=== PATIENT | male | born 1940 | race Caucasian/White ===

== ENCOUNTER 2018-02-02 16:58 | Inpatient (IN) ==
[2018-02-02] MEDS ORDERED: Naloxone 0.4 MG/ML INJ IVP PRN (23:02)
[2018-02-02] MEDS ORDERED: Acetaminophen 650 MG RECTAL SUPP RC PRN (23:13)
[2018-02-02] MEDS: 0.9 % Sodium Chloride 1,000 ML IVC SCH (23:35)
--- NOTE | 2018-02-02 23:40 | Internal Med History&Physical ---
Date of Encounter: 02/02/18 Time of Encounter: 22:00 Internal Medicine - H&P: HPI Chief complaint: Right-sided weakness Admitted From: Home Plans for Post Hospital Care: Home History of present illness: Mr. Bowman is a 77 year old male presented to [facility] emergency room for right- sided weakness. Past medical history is significant for dementia, hypertension , hyperlipidemia, history of TIA, S/P pacemaker Patient is disoriented when I see him in 3B. no family member at bedside. I tried to call his at [phone] but cannot get through. History is obtained from [facility] transfer documentation. Patient has abnormal gait which is worsening for about 2 days. Patient shows drowsy and moving slower than before. Patient also was found right-sided weakness since this morning. In [facility] emergency room, CT head has been done, which shows atrophy but no acute infarct or bleeding. Patient was suspected CVA and transferred to our hospital for further management. Past Med Surg Social Fam HX - Past Medical History Medical history: hyperlipidemia, hypertension, peripheral artery disease, syncope, TIA Additional medical history: Sick Sinus Syndrome Psychiatric history: no psych history - Past Surgical History Surgical History: pacemaker/AICD Additional surgical history: carotid stenosis - Social History Smoking Status: Never smoker Smokeless Tobacco Status: No Alcohol use: none Drug use: none - Family History Mother History Unknown: Yes Internal Medicine - H&P: Meds Clopidogrel [Plavix] 75 mg PO DAILY 05/27/16 [History] Doxazosin Mesylate [Cardura] 2 mg PO DAILY 05/27/16 [History] Metoprolol [Lopressor] 25 mg PO DAILY 05/27/16 [History] Aspirin [Lo-Dose Aspirin EC] 81 mg PO DAILY 02/02/18 [History] Atorvastatin [Lipitor] 40 mg PO HS 02/02/18 [History] Citalopram Hydrobromide [Citalopram HBr] 40 mg PO DAILY 02/02/18 [History] Donepezil [Aricept] 10 mg PO HS 02/02/18 [History] Memantine [Namenda] 5 mg PO DAILY 02/02/18 [History] Montelukast [Singulair] 10 mg PO DAILY 02/02/18 [History] Tramadol HCl [Ultram] 50 mg PO TID PRN 02/02/18 [History] 3 Allergy/AdvReac Type Severity Reaction Status Date / Time No Known Allergies Allergy Verified 02/02/18 20:34 All Systems PM: A 10-system review of systems was performed and is negative for pertinent findings except as documented above in the HPI. - Constitutional Vitals: Temp Pulse Resp BP Pulse Ox 98.2 F 63 16 146/83 98 02/02/18 23:21 02/02/18 23:21 02/02/18 23:21 02/02/18 23:21 02/02/18 23:21 General appearance: Present: A&O X 0, no acute distress, answers questions appropriately - Head Head exam: Present: atraumatic, normocephalic - Eye Eye exam: Present: PERRL, conjuntiva pink, sclera anicteric Pupils: Present: PERRL - Neck Neck exam general surgery: Present: supple, trachea midline. Absent: lymphadenopathy - Respiratory Respiratory exam: Present: CTAB. Absent: accessory muscle use, rales, rhonchi, wheezes - Cardiovascular Cardiovascular exam: Present: RRR, +S1, +S2. Absent: diastolic murmur, gallop, rubs, systolic murmur - GI/Abdominal GI/Abdominal exam: Present: normal bowel sounds, soft, no peritoneal signs. Absent: distended, tenderness - Extremities Exam Extremities exam: Present: warm, radial pulses palpable and symmetrical. Absent : calf tenderness, cyanotic, pedal edema - Neurological Exam Neurological exam: Present: altered, motor sensory deficit (3/5 right UE and LE) , pronater drift (Right-sided weakness). Absent: CN II-XII intact (Mouth divated to left on trying to show teeth. Tongue stick out towards right.), facial droop, speech deficit - Skin Skin exam: Present: dry, intact - Assessment and plan (1) CVA (cerebral vascular accident) Current Visit: Yes Status: Acute Assessment and plan: Patient has right-sided weakness, clinically consider CVA, most likely ischemic as CT has signs of hemorrhage. - Place patient on [facility] SS protocol - Continuous cardiac monitoring - Echo and bilateral carotid duplex - Patient cannot have MRI because of pacemaker - Nothing by mouth, aspiration precautions, swallow evaluation in a.m. - We will start antiplatelet and statin after passing swallow evaluation - Consult social work, PTOT for placement - Consult neurology for further management Qualifiers: CVA mechanism: unspecified Qualified Code(s): I63.9 - Cerebral infarction, unspecified (2) Hypertension Current Visit: Yes Status: Acute Assessment and plan: Hold hypertensive medication for permissive hypertension. Closely monitor BP Qualifiers: Hypertension type: essential hypertension Qualified Code(s): I10 - Essential (primary) hypertension (3) Dementia Current Visit: Yes Status: Acute Assessment and plan: Resume home medication after passing swallow evaluation Qualifiers: Dementia type: unspecified type Dementia behavioral disturbance: without behavioral disturbance Qualified Code(s): F03.90 - Unspecified dementia without behavioral disturbance (4) DVT prophylaxis Current Visit: Yes Status: Acute Assessment and plan: Heparin subcutaneously - Time Spent With Patient Total time spent is greater than 50% in coordination of care (as documented) at patient's floor/unit and/or counseling patient: 40 min Greater than 35 minutes
[2018-02-03 04:50] LABS: Basophils % 0.6 %; Eosinophils # 0.1 K/mcL (0.0-0.6); Eosinophils % 1.7 %; Hematocrit 45.4 % (37.5-50.1); Hemoglobin 15.1 g/dL (12.9-16.9); Immature Granulocytes % 0.4 % (0-4); Lymphocytes # 1.6 K/mcL (0.6-4.6); Lymphocytes % 29.9 %; Mean Corpuscular HGB Conc 33.3 g/dL (31.6-35.5); Mean Corpuscular Volume 87.3 fL (83.0-100.0); Mean Platelet Volume 9.9 fL (9.4-12.4); Monocytes # 0.5 K/mcL (0.0-1.3); Monocytes % 9.8 %; Neutrophils # 3.1 K/mcL (1.6-8.9); Platelet Count 149 K/mcL (140-400); Red Cell Distribution Width 13.3 % (11.5-14.5); Segmented Neutrophils % 57.6 %
[2018-02-03 05:02] LABS: INR 1.1; Prothrombin Time 11.9 Seconds (9.4-12.1)
[2018-02-03 05:12] LABS: Chol/HDL Ratio 3.4 (0-4.9)
[2018-02-03 05:17] LABS: BUN/Creatinine Ratio 16 (6-26); Blood Urea Nitrogen 15 mg/dL (8-23); Calcium 8.7 mg/dL (8.6-10.3); Carbon Dioxide 28 mEq/L (23-29); Chloride 108 mEq/L (98-107); Chol/HDL Ratio 3.5 (0-4.9); Cholesterol 92 mg/dL (< 200); Glucose 105 mg/dL (70-105); HDL Cholesterol 26 mg/dL (40-59); LDL Cholesterol,Calculated 48 mg/dL (0-99); Osmolality,Calculated 293 (280-300); Potassium 4.2 mEq/L (3.5-5.1); Sodium 141 mEq/L (136-145); Triglycerides 92 mg/dL (< 150); eGFR For African Americans > 60 (> 60); eGFR For Non-African Americans > 60 (> 60)
[2018-02-03] MEDS: *HR* Heparin 5,000 UNIT/ML VIAL SQ SCH ×2 (06:11→15:59)
[2018-02-03] MEDS: 0.9 % Sodium Chloride 1,000 ML IVC SCH (10:28)
--- NOTE | 2018-02-03 11:21 | Neurology - Consult Note ---
<Camden Covarrubias R - Last Filed: 02/03/18 11:18> Date of Encounter: 02/03/18 Time of Encounter: 11:18 History of Present Illness HPI: Mr. Bowman is a 77 year old male transferred from [facility] emergency room for a suspected CVA. CT scan did not reveal any acute abnormality, patient cannot have MRI due to pacemaker. Echo and carotid ultrasound studies are pending. No family is present for my examination, patient able to provide only a limited history of events. States he is not sure why he is the hospital or what is wrong. Documentation suggests he has been weak and ambulating poorly for last 2 days. Patient believes he has had a stroke in the past but cannot provide any further information. Past Med Surg Social Fam HX - Past Medical History Medical history: hyperlipidemia, hypertension, peripheral artery disease, syncope, TIA Additional medical history: Sick Sinus Syndrome Psychiatric history: no psych history - Past Surgical History Surgical History: pacemaker/AICD Additional surgical history: carotid stenosis - Social History Smoking Status: Never smoker Smokeless Tobacco Status: No Alcohol use: none Drug use: none - Family History Mother History Unknown: Yes Medications and Allergies Clopidogrel [Plavix] 75 mg PO DAILY 05/27/16 [History] Doxazosin Mesylate [Cardura] 2 mg PO DAILY 05/27/16 [History] Metoprolol [Lopressor] 25 mg PO DAILY 05/27/16 [History] Aspirin [Lo-Dose Aspirin EC] 81 mg PO DAILY 02/02/18 [History] Atorvastatin [Lipitor] 40 mg PO HS 02/02/18 [History] Citalopram Hydrobromide [Citalopram HBr] 40 mg PO DAILY 02/02/18 [History] Donepezil [Aricept] 10 mg PO HS 02/02/18 [History] Memantine [Namenda] 5 mg PO DAILY 02/02/18 [History] Montelukast [Singulair] 10 mg PO DAILY 02/02/18 [History] Tramadol HCl [Ultram] 50 mg PO TID PRN 02/02/18 [History] 3 Allergy/AdvReac Type Severity Reaction Status Date / Time No Known Allergies Allergy Verified 02/02/18 20:34 All Systems: The remainder of the systems were reviewed and are negative Physical Examination - Vital Signs Vital Signs: Initial Vital Signs Temp Pulse Resp BP Pulse Ox 98.7 F 60 16 131/80 97 02/02/18 18:54 02/02/18 18:54 02/02/18 18:54 02/02/18 18:54 02/02/18 18:54 - Exam Exam: Mental status: Patient is awake and alert, oriented to person only. Fund of knowledge is poor. Speaks in short sentences, does not appear to be slurring. Cranial nerves: right facial droop is visible. Visual craig, and extraocular movements intact with prompting. Pupils equal, round, reactive to light. CN V sensation and motor intact. CN VII, facial droop. Bilateral hearing diminished. Palate elevates symmetric. CN XI motor intact. Tongue deviates to right when protrude. Upper extremity motor: Right side 4/5 strength compared to left 5/5 in deltoid, biceps, triceps, finger extensors and abductors. Lower extremity motor: Right side 4/5 strength compared to left 5/5 strength in hip flexors, quadriceps, hamstrings, plantar flexor and extensor. Sensory: Intact upper and lower extremity to light touch Cerebellar: Able to perform finger to nose and rapid alternating movements with right side dysmetria and hypokinesia apparent. Reflexes: 2+ reflexes biceps, triceps, brachioradialis, achilles, and patellar. Results - Laboratory Findings CBC and BMP: 02/03/18 04:07 02/03/18 04:07 Abnormal lab findings: Abnormal lab results Chloride 108 mEq/L (98-107) H 02/03/18 04:07 POC Glucose 102 mg/dL (70-99) H 02/03/18 05:30 HDL Cholesterol 26 mg/dL (40-59) L 02/03/18 04:07 Consult Discharge Plan - Plan Referrals: Sean Fox DO [Primary Care Provider] - <Abdon Murphy I - Last Filed: 02/03/18 17:00> Date of Encounter: 02/03/18 Assessment and Plan (1) CVA (cerebral vascular accident) Current Visit: Yes Status: Acute Pt was seen and examined, my medical decision was reviewed with the Resident Physician, I agree with the documented findings, disposition and treatment plas as described except to the extent set forth below This is a 77 years old male who was seen in the neurological consultation admitted because of for acute right-sided weakness according to the family who provided most of the history that patient has this weakness of the right upper extremities and also of the lower extremity for the past 1 or 2 days at the same time they have also noticed some increasing confusion so brought in the hospital and now admitted for further workup. Baseline patient has a mild cognitive impairment but able to ambulate without any help but for the past few days he has not been able to walk by himself. No history of stroke in the past. CT scan of the head was negative for any acute bleed or infarct. On neurological examination patient is lethargic but arousable able to follow simple commands without any difficulty. Pupils are equal and reactive light and accommodation no facial asymmetry. Motor examination did have mild weakness of 3+/4 minus of the right upper and lower extremity as compared to the left Sensory examination is within normal limit reflexes slightly hypoactive on the right and equivocal toes bilaterally Initial CT of the head was negative Impression Patient most likely has a left hemispheric infarct with right sided weakness. He also has mild cognitive impairment/early dementia but overall is been stable. Plan: Following's are my recommendations. For secondary stroke prevention patient should continue daily antiplatelet medication and vascular risk factor modification. Order the following test, *cant get MRI of the brain due to pacemaker, will repeat CT< tamra ge CTA of head and Neck *Antiplatelet medication, aspirin 81 mg daily. Along with Plavix 75 mg daily *Consult physical therapy/ rehabilitation * To reduce the risk of future ischemic stroke patient need continued vascular risk modification, following's are the recommended guidelines LDL goal less than 70 MG per deciliter Diabetes management Blood pressure control should achieve less than 130/80 mmHg BP management should aim to achieve long-term control in a reasonable amount of time. Patient to continue to follow-up with his primary care physician for continued outpatient risk factor management and modification. Abdon Murphy MD Qualifiers: CVA mechanism: unspecified Qualified Code(s): I63.9 - Cerebral infarction, unspecified (2) Acute right-sided weakness Current Visit: Yes Status: Acute History of Present Illness HPI: Mr. Bowman is a 77 year old male All Systems: The remainder of the systems were reviewed and are negative Physical Examination - Vital Signs Vital Signs: Initial Vital Signs Temp Pulse Resp BP Pulse Ox 98.7 F 60 16 131/80 97 02/02/18 18:54 02/02/18 18:54 02/02/18 18:54 02/02/18 18:54 02/02/18 18:54 Results - Laboratory Findings CBC and BMP: 02/03/18 04:07 02/03/18 04:07 Abnormal lab findings: Abnormal lab results Chloride 108 mEq/L (98-107) H 02/03/18 04:07 POC Glucose 102 mg/dL (70-99) H 02/03/18 05:30 HDL Cholesterol 26 mg/dL (40-59) L 02/03/18 04:07
[2018-02-03] MEDS: Aspirin Enteric Coated 81 MG Tablet PO SCH (15:58)
--- NOTE | 2018-02-03 18:37 | Internal Med Progress Note ---
Date of Encounter: 02/03/18 Time of Encounter: 15:15 - Assessment and plan (1) CVA (cerebral vascular accident) Current Visit: Yes Status: Suspected Assessment and plan: presented with right-sided weakness, gradual onset about 3 days ago; CT head showed no acute stroke; MRI brain could not be done due to presence of PPM; B/L Carotid Doppler shows- left occlusion and 60-79% stenosis on right side; consulted vascular surgery; Echo shows preserved EF, mild diastolic dysfunction; Neurology recommendations appreciated; resume ASA and Plavix, continue statin; BURRITO MAKER cleared patient for diet; PT/OT evaluation recommends IP rehab, social security specialist on board; Qualifiers: CVA mechanism: unspecified Qualified Code(s): I63.9 - Cerebral infarction, unspecified (2) Hypertension Current Visit: Yes Status: Chronic Qualifiers: Hypertension type: essential hypertension Qualified Code(s): I10 - Essential (primary) hypertension (3) Dementia Current Visit: Yes Status: Chronic Qualifiers: Dementia type: Alzheimer's disease Alzheimer's disease onset: late-onset Dementia behavioral disturbance: without behavioral disturbance Qualified Code (s): G30.1 - Alzheimer's disease with late onset; F02.80 - Dementia in other diseases classified elsewhere without behavioral disturbance (4) DVT prophylaxis Current Visit: Yes Status: Acute (5) Pacemaker Current Visit: Yes Status: Chronic - Time Spent With Patient Total time spent is greater than 50% in coordination of care (as documented) at patient's floor/unit and/or counseling patient: - Subjective Interval history: Able to answer a few questions; continues to have some confusion, memory loss, right-sided weakness; no dysphagia, facial droop; history obtained from his at bedside; - Constitutional Vitals: Temp Pulse Resp BP Pulse Ox 98.6 F 71 17 132/82 96 02/03/18 15:56 02/03/18 15:56 02/03/18 15:56 02/03/18 15:56 02/03/18 15:56 General appearance: Present: A&O X 1. Absent: answers questions appropriately - Respiratory Respiratory exam: Present: CTAB. Absent: accessory muscle use, rales, rhonchi, wheezes - Cardiovascular Cardiovascular exam: Present: RRR, +S1, +S2. Absent: diastolic murmur, gallop, rubs, systolic murmur - GI/Abdominal GI/Abdominal exam: Present: normal bowel sounds, soft, no peritoneal signs. Absent: distended, tenderness - Extremities Exam Extremities exam: Present: warm, radial pulses palpable and symmetrical. Absent : calf tenderness, cyanotic, pedal edema - Neurological Exam Neurological exam: Present: CN II-XII intact, no focal deficits (4/5 motor power right UE and LE). Absent: pronater drift, facial droop, speech deficit Internal Medicine: Result - Labs CBC & Chem 7: 02/03/18 04:07 02/03/18 04:07 Labs: Short CBC 02/03/18 Range/Units 04:07 WBC 5.3 (4.3-11.1) K/mcL Hgb 15.1 (12.9-16.9) g/dL Hct 45.4 (37.5-50.1) % Plt Count 149 (140-400) K/mcL Neutrophils # 3.1 (1.6-8.9) K/mcL BMP 02/03/18 04:07 Sodium 141 Potassium 4.2 Chloride 108 H Carbon Dioxide 28 BUN 15 Creatinine 0.94 Glucose 105 Calcium 8.7 - ABG Interpretation ABG results: PT/INR, D-dimer PT 11.9 Seconds (9.4-12.1) 02/03/18 04:07 - Impressions Impressions Echocardiogram 02/03/18 13:00 Impressions: LVEF 60-65%. Normal LV chamber size, wall thickness and function. Mild left ventricular diastolic dysfunction. Normal right ventricular structure and function. Mild tricuspid regurgitation. Borderline mild pulmonary hypertension. Agitated saline study was negative for intra-cardiac shunting. A device lead was visualized in the right atrium and right ventricle. Left Ventricular Wall Motion: Rest Echo Findings All wall segments showed normal motion. Findings: Study Quality * Technically adequate exam. ECG Findings * Normal sinus rhythm. Left Ventricle * LVEF 60-65%. * Normal LV chamber size, wall thickness and function. * Mild left ventricular diastolic dysfunction. Right Ventricle * Normal right ventricular structure and function. Left Atrium * Mildly dilated left atrium. Right Atrium * Mildly dilated right atrium. Aortic Valve * Mildly calcified aortic valve leaflets. Unable to determie the number of leaflets. * No aortic regurgitation. * No aortic stenosis. Mitral Valve * Mildly thickened mitral valve leaflets. * Mild mitral annular calcification. * Trace mitral regurgitation. * No mitral stenosis. Tricuspid Valve * Normal tricuspid valve structure. * Mild tricuspid regurgitation. * Borderline mild pulmonary hypertension. Pulmonic Valve * Pulmonic valve is not well visualized. * No pulmonic regurgitation. Aorta * Normally sized aortic root. Pericardium * The pericardium appears normal. IVC * Normal IVC dimensions and inspiratory collapse. Pulmonary Artery * Normal visualized portions of the main pulmonary artery. Device lead * A device lead was visualized in the right atrium and right ventricle. Consult Discharge Plan - Plan Referrals: Sean Fox DO [Primary Care Provider] -
[2018-02-04] MEDS: *HR* Heparin 5,000 UNIT/ML VIAL SQ SCH ×2 (06:22→17:40)
[2018-02-04] MEDS: Aspirin Enteric Coated 81 MG Tablet PO SCH (08:32)
--- NOTE | 2018-02-04 16:05 | Neurology Progress Note ---
Date of Encounter: 02/04/18 Time of Encounter: 07:25 Assessment and Plan (1) CVA (cerebral vascular accident) Current Visit: Yes Status: Suspected This patient was been admitted with this right-sided weakness unable to get an MRI because of the pacemaker initial CT was negative during further workup carotid studies shows evidence of left carotid occluded with right sided 60-79%. Abdon Murphy MD Qualifiers: CVA mechanism: unspecified Qualified Code(s): I63.9 - Cerebral infarction, unspecified (2) Acute right-sided weakness Current Visit: Yes Status: Acute Patient likely has suffered new left hemispheric infarct initial CT is negative unable to get an MRI currently on antiplatelet therapy suggested to continue on it. As his left side is completely excluded perhaps it could be a new occlusion but we do not know as did not have any recent imaging studies. Right side is 60-79% stenosis vascular surgery is been consulted to follow the recommendations (3) Carotid stenosis, right Current Visit: Yes Status: Acute (4) Carotid occlusion, left Current Visit: Yes Status: Acute She may need a CT angiogram of the carotid Subjective Interval history: Patient seems to be stable denies any other new symptoms or any other new problems Objective - Constitutional Vitals: Temp Pulse Resp BP Pulse Ox 98.8 F 62 20 123/79 94 02/04/18 11:26 02/04/18 11:26 02/04/18 11:26 02/04/18 11:26 02/04/18 11:26 - Neurological Exam Motor examination - right side: 4/5: deltoids, biceps, triceps, wrist flexion, wrist extension, dynamometer tester engine, hip flexors, tibialis Anterior, quadriceps, toe extension (EHL), plantarflexion Motor examination - left side: 5/5: deltoids, biceps, triceps, wrist flexion, wrist extension, hip flexors, dynamometer tester engine, quadriceps, tibialis Anterior, toe extension (EHL), plantarflexion Sensation intact: Present: intact Reflexes: Biceps: 1+, Triceps: 1+, Brachioradialis: 1+, Patella: 0, Achilles: 1+ Mental Status Examination: Present: awake, alert, oriented to person, oriented to place, follows commands appropriately Cranial nerve examination: Present: PERRL, EOMI, visual craig intact, no facial asymmetry is present Results - Laboratory Findings CBC and BMP: 02/03/18 04:07 02/03/18 04:07 Abnormal lab findings: Abnormal lab results Chloride 108 mEq/L (98-107) H 02/03/18 04:07 POC Glucose 128 mg/dL (70-99) H 02/03/18 11:57 HDL Cholesterol 26 mg/dL (40-59) L 02/03/18 04:07 - Diagnostic Findings Additional findings: Findings: Right proximal ICA has a severe, 60-79% stenosis. Findings: Left proximal ICA is totally occluded. Consult Discharge Plan - Plan Referrals: Sean Fox DO [Primary Care Provider] -
--- NOTE | 2018-02-04 16:54 | Internal Med Progress Note ---
Date of Encounter: 02/04/18 Time of Encounter: 13:45 - Assessment and plan (1) CVA (cerebral vascular accident) Current Visit: Yes Status: Suspected Assessment and plan: presented with right-sided weakness; CT head showed no acute stroke; MRI brain could not be done due to presence of PPM; B/L Carotid Doppler shows- left complete occlusion and 60-79% stenosis on right side; consulted vascular surgery , pending evaluation; Echo shows preserved EF, mild diastolic dysfunction; Neurology recommendations appreciated; continue ASA and Plavix, continue statin ; SKEIN BANDER cleared patient for diet; PT/OT evaluation recommends IP rehab, social sciences lecturer on board; Qualifiers: CVA mechanism: unspecified Qualified Code(s): I63.9 - Cerebral infarction, unspecified (2) Hypertension Current Visit: Yes Status: Chronic Assessment and plan: BP well-controlled; continue beta clarisse; Qualifiers: Hypertension type: essential hypertension Qualified Code(s): I10 - Essential (primary) hypertension (3) Dementia Current Visit: Yes Status: Chronic Qualifiers: Dementia type: Alzheimer's disease Alzheimer's disease onset: late-onset Dementia behavioral disturbance: without behavioral disturbance Qualified Code (s): G30.1 - Alzheimer's disease with late onset; F02.80 - Dementia in other diseases classified elsewhere without behavioral disturbance (4) DVT prophylaxis Current Visit: Yes Status: Acute (5) Pacemaker Current Visit: Yes Status: Chronic - Time Spent With Patient Total time spent is greater than 50% in coordination of care (as documented) at patient's floor/unit and/or counseling patient: - Subjective Interval history: Noted to be fast asleep; d/w at bedside- tolerates diet; continues to have some right-sided weakness; no chest pain or dyspnea; no dizziness or syncope or blurred vision; - Constitutional Vitals: Temp Pulse Resp BP Pulse Ox 98.0 F 64 18 156/83 96 02/04/18 16:37 02/04/18 16:37 02/04/18 16:37 02/04/18 16:37 02/04/18 16:37 General appearance: Present: A&O X 1. Absent: answers questions appropriately - Cardiovascular Cardiovascular exam: Present: RRR, +S1, +S2. Absent: diastolic murmur, gallop, rubs, systolic murmur Internal Medicine: Result - Labs CBC & Chem 7: 02/03/18 04:07 02/03/18 04:07 - ABG Interpretation ABG results: PT/INR, D-dimer PT 11.9 Seconds (9.4-12.1) 02/03/18 04:07 Consult Discharge Plan - Plan Referrals: Sean Fox DO [Primary Care Provider] -
--- NOTE | 2018-02-04 19:40 | Vascular/Endovasc Consult Note ---
Date of Encounter: 02/04/18 Time of Encounter: 19:37 Assessment and Plan (1) Dementia Current Visit: Yes Status: Chronic History of dementia Qualifiers: Dementia type: Alzheimer's disease Alzheimer's disease onset: late-onset Dementia behavioral disturbance: without behavioral disturbance Qualified Code (s): G30.1 - Alzheimer's disease with late onset; F02.80 - Dementia in other diseases classified elsewhere without behavioral disturbance (2) Acute right-sided weakness Current Visit: Yes Status: Acute Clinical left hemispheric stroke which is consistent with left internal carotid artery occlusion by carotid artery duplex scanning. We will obtain CT angiogram of the neck for confirmation purposes. (3) Carotid occlusion, left Current Visit: Yes Status: Acute Left carotid artery occlusion by duplex scanning and consistent with neurologic presentation. - History of Present Illness Consult date: 02/04/18 Requesting physician: Nat Mcfarland Consult reason: Acute stroke Chief complaint: Right-sided weakness History of present illness: Mr. Bowman is a 77 year old male Who was admitted via referral from [facility] because of right-sided weakness. Apparently the symptoms have been ongoing for 2-3 days prior to his presentation to [facility]. A CT scan was done [facility] according to the records on the chart it was negative for an acute stroke or bleed. He was transferred to [place] for further evaluation. Part of his evaluation included an echocardiogram and a carotid artery duplex scan. The duplex scan demonstrated occlusion of the left internal carotid artery. The right carotid artery had a 60-79% stenosis though this is at the lower end of that range with a peak systolic velocity of 154 cm/s and an end-diastolic velocity of 42 cm/s. The patient cannot provide me with any more significant details. On reviewing the chart there is a history of dementia, hypertension, hyperlipidemia, status post pacemaker, and previous TIA. Past Med Surg Social Fam HX - Past Medical History Medical history: hyperlipidemia, hypertension, peripheral artery disease, syncope, TIA Additional medical history: Sick Sinus Syndrome Psychiatric history: no psych history - Past Surgical History Surgical History: pacemaker/AICD Additional surgical history: carotid stenosis - Social History Smoking Status: Never smoker Smokeless Tobacco Status: No Alcohol use: none Drug use: none - Family History Mother History Unknown: Yes Medications and Allergies Clopidogrel [Plavix] 75 mg PO DAILY 05/27/16 [History] Doxazosin Mesylate [Cardura] 2 mg PO DAILY 05/27/16 [History] Metoprolol [Lopressor] 25 mg PO DAILY 05/27/16 [History] Aspirin [Lo-Dose Aspirin EC] 81 mg PO DAILY 02/02/18 [History] Atorvastatin [Lipitor] 40 mg PO HS 02/02/18 [History] Citalopram Hydrobromide [Citalopram HBr] 40 mg PO DAILY 02/02/18 [History] Donepezil [Aricept] 10 mg PO HS 02/02/18 [History] Memantine [Namenda] 5 mg PO DAILY 02/02/18 [History] Montelukast [Singulair] 10 mg PO DAILY 02/02/18 [History] Tramadol HCl [Ultram] 50 mg PO TID PRN 02/02/18 [History] 3 Allergy/AdvReac Type Severity Reaction Status Date / Time No Known Allergies Allergy Verified 02/02/18 20:34 All Systems Review: The remainder of the systems were reviewed and are negative Exam Vital Signs, Last 4 Hours Temp Pulse Resp BP Pulse Ox 02/04/18 18:43 98.4 F 66 16 138/76 96 02/04/18 16:37 98.0 F 64 18 156/83 96 General: Present: No Apparent Distress, Well developed, Well nourished, Other ( Minimally conversant) HEENT: Present: Atraumatic, Normocephaly, Trachea midline Neck: Absent: JVD, Left Carotid bruit, Right Carotid bruit, Midline deformity, Tracheal deviation Cardiac: Present: Reg Rate and Rhythm, Normal S1 and S2, No Murmur Lungs: Present: Normal Breath Sounds Neuro: Present: Other (Patient has right hemiplegia greater in right upper extremity than right lower extremity.) Abdomen: Present: Soft, Non-tender. Absent: Masses Vascular: Present: Normal capillary refill, Pulse, normal. Absent: Cyanosis, Edema Skin: Present: No rashes noted on visualized skin Consult Discharge Plan - Plan Referrals: Sean Fox DO [Primary Care Provider] -
[2018-02-04] MEDS ORDERED: Isovue-370 500 ML INFUS..BTL IV ONE (19:44)
[2018-02-05] MEDS: *HR* Heparin 5,000 UNIT/ML VIAL SQ SCH ×2 (05:48→18:22)
--- NOTE | 2018-02-05 09:00 | Neurology Progress Note ---
Date of Encounter: 02/05/18 Time of Encounter: 07:35 Assessment and Plan (1) CVA (cerebral vascular accident) Current Visit: Yes Status: Suspected Clinically patient is a stable no other new or symptoms he did have underlying dementia which may hinder in the recovery especially for physical therapy but certainly she would benefit from short-term rehabilitation or PT at home. Considering only 25% stenosis on CT angiogram I really doubt he would need any surgical intervention at this time we will discuss with vascular surgery about the recommendation would suggest treating medically with aspirin along with Plavix and statin As patient is stable he could be discharged from neurology standpoint Would need repeat carotid duplex/CTA in 6 month to a year Qualifiers: CVA mechanism: unspecified Qualified Code(s): I63.9 - Cerebral infarction, unspecified (2) Acute right-sided weakness Current Visit: Yes Status: Acute (3) Carotid stenosis, right Current Visit: Yes Status: Acute (4) Carotid occlusion, left Current Visit: Yes Status: Acute Subjective Interval history: Patient seems to be stable denies any other new symptoms or any other new problems Related by vascular surgery , had a CTA of the neck which shows Complete occlusion of the left internal carotid artery from left carotid bifurcation. Reconstitution at the clinoid segment. Given caliber of the occluded left internal carotid artery, this is felt to be chronic. Atherosclerotic disease at right carotid bifurcation, without flow-limiting stenosis by NASCET criteria. Stenosis is less than 25%. Vessel tortuosity at the right carotid bifurcation , Likely the reason of discrepancy in the carotid vascular studies. Objective - Constitutional Vitals: Temp Pulse Resp BP Pulse Ox 98.4 F 69 14 153/96 96 02/05/18 06:53 02/05/18 06:53 02/05/18 06:53 02/05/18 06:53 02/05/18 06:53 - Neurological Exam Motor examination - left side: 5/5: deltoids, biceps, triceps, wrist flexion, wrist extension, hip flexors, pathological technician, quadriceps, tibialis Anterior, toe extension (EHL), plantarflexion Sensation intact: Present: intact Mental Status Examination: Present: awake, alert, oriented to person, oriented to place, follows commands appropriately Cranial nerve examination: Present: PERRL, EOMI, visual craig intact, no facial asymmetry is present Results - Laboratory Findings CBC and BMP: 02/03/18 04:07 02/03/18 04:07 Abnormal lab findings: Abnormal lab results Chloride 108 mEq/L (98-107) H 02/03/18 04:07 POC Glucose 128 mg/dL (70-99) H 02/03/18 11:57 HDL Cholesterol 26 mg/dL (40-59) L 02/03/18 04:07 Consult Discharge Plan - Plan Referrals: Sean Fox DO [Primary Care Provider] -
[2018-02-05] MEDS: Aspirin Enteric Coated 81 MG Tablet PO SCH (09:08)
--- NOTE | 2018-02-05 17:26 | Internal Med Progress Note ---
Date of Encounter: 02/05/18 Time of Encounter: 11:20 - Assessment and plan (1) CVA (cerebral vascular accident) Current Visit: Yes Status: Suspected Assessment and plan: presented with right-sided weakness; CT head showed no acute stroke; MRI brain could not be done due to presence of PPM; B/L Carotid Doppler shows- left complete occlusion and 60-79% stenosis on right side; consulted vascular surgery , recommended CTA of neck, which showed complete occlusion in left ICA, 25% stenosis on the right side. Discussed with vascular surgery, no intervention needed at this time. Echo shows preserved EF, mild diastolic dysfunction; Neurology recommendations appreciated; continue ASA and Plavix, continue statin ; ELECTRICIAN RADIO cleared patient for diet; PT/OT evaluation recommends IP rehab, 7th grade social studies teacher on board; Patient is medically stable for discharge. Qualifiers: CVA mechanism: unspecified Qualified Code(s): I63.9 - Cerebral infarction, unspecified (2) Hypertension Current Visit: Yes Status: Chronic Qualifiers: Hypertension type: essential hypertension Qualified Code(s): I10 - Essential (primary) hypertension (3) Dementia Current Visit: Yes Status: Chronic Qualifiers: Dementia type: Alzheimer's disease Alzheimer's disease onset: late-onset Dementia behavioral disturbance: without behavioral disturbance Qualified Code (s): G30.1 - Alzheimer's disease with late onset; F02.80 - Dementia in other diseases classified elsewhere without behavioral disturbance (4) DVT prophylaxis Current Visit: Yes Status: Acute (5) Pacemaker Current Visit: Yes Status: Chronic - Time Spent With Patient Total time spent is greater than 50% in coordination of care (as documented) at patient's floor/unit and/or counseling patient: - Subjective Interval history: No new complaints; does not answer much, history obtained from his at bedside; continues to have right-sided weakness; no chest pain, dyspnea, palpitations; - Constitutional Vitals: Temp Pulse Resp BP Pulse Ox 98.5 F 68 14 142/76 95 02/05/18 15:16 02/05/18 15:16 02/05/18 15:16 02/05/18 15:16 02/05/18 15:16 General appearance: Present: A&O X 1. Absent: answers questions appropriately - Respiratory Respiratory exam: Present: CTAB. Absent: accessory muscle use, rales, rhonchi, wheezes - Cardiovascular Cardiovascular exam: Present: RRR, +S1, +S2. Absent: diastolic murmur, gallop, rubs, systolic murmur - Neurological Exam Neurological exam: Present: CN II-XII intact, no focal deficits (motor power 4/ 5 in right UE and LE). Absent: pronater drift, facial droop, speech deficit Internal Medicine: Result - Labs CBC & Chem 7: 02/03/18 04:07 02/03/18 04:07 - ABG Interpretation ABG results: PT/INR, D-dimer PT 11.9 Seconds (9.4-12.1) 02/03/18 04:07 - Impressions Impressions Neck CTA 02/04/18 19:44 IMPRESSION: Complete occlusion of the left internal carotid artery from left carotid bifurcation. Reconstitution at the clinoid segment. More distal vessels are not evaluated. CTA head was not obtained. Given caliber of the occluded left internal carotid artery, this is felt to be chronic. Correlation with symptoms is recommended. Atherosclerotic disease at right carotid bifurcation, without flow-limiting stenosis by NASCET criteria. Stenosis is less than 25%. Vessel tortuosity at the right carotid bifurcation, with mild retropharyngeal course. No high-grade stenosis or focal occlusion involving the vertebral arteries. The right vertebral artery is dominant. The findings were sent to the Radiology [facility] at 11:32 pm on 02/04/2018to be communicated to a licensed caregiver. D/ / 02/05/2018 07:04:55 Brandon Rush MD / blayne Interpreting Provider: Brandon Rush MD Consult Discharge Plan - Plan Referrals: Sean Fox DO [Primary Care Provider] -
--- NOTE | 2018-02-05 19:48 | Event Note ---
Date of Encounter: 02/05/18 Time of Encounter: 19:[address] angiogram of the neck I had requested last night. This demonstrates occlusion of the internal carotid artery as depicted on the carotid artery ultrasound. The contralateral carotid has no hemodynamically significant stenosis. I came to see the patient and his was present. I reviewed with the the findings of the duplex scan as well as the CT angiogram. We discussed the natural history of carotid artery disease and particular carotid artery occlusion. I stressed the need for continued antiplatelet therapy. There is no role for surgery or endovascular intervention for the occluded internal carotid artery. He was explained that any manipulation of this vessel had a hyperintensity for stroke. All questions were answered. The patient's was satisfied and understood the issues as I explained to the patient. He does not require any scheduled follow-up in the vascular surgery clinic as surgery is not anticipated at this time. The patient may return on a when necessary basis. The patient is scheduled to go to an extended care facility for rehabilitation tomorrow.
[2018-02-06] MEDS: *HR* Heparin 5,000 UNIT/ML VIAL SQ SCH (06:20)
[2018-02-06] MEDS: Aspirin Enteric Coated 81 MG Tablet PO SCH (08:23)
--- NOTE | 2018-02-06 09:17 | Neurology Progress Note ---
Date of Encounter: 02/06/18 Time of Encounter: 07:16 Assessment and Plan (1) CVA (cerebral vascular accident) Current Visit: Yes Status: Suspected Clinically patient is a stable no other new or symptoms he did have underlying dementia which may hinder in the recovery especially for physical therapy but certainly she would benefit from short-term rehabilitation or PT at home. Considering only 25% stenosis on CT angiogram I really doubt he would need any surgical intervention at this time we will discuss with vascular surgery about the recommendation would suggest treating medically with aspirin along with Plavix and statin As patient is stable he could be discharged from neurology standpoint CT angiogram and carotid results were discussed with the doctor Does Not Require Any Surgical Intervention Okay to discharge to rehabilitation We will sign off call if needed Qualifiers: CVA mechanism: unspecified Qualified Code(s): I63.9 - Cerebral infarction, unspecified (2) Acute right-sided weakness Current Visit: Yes Status: Acute (3) Carotid stenosis, right Current Visit: Yes Status: Acute (4) Carotid occlusion, left Current Visit: Yes Status: Acute Subjective Interval history: Patient seems to be stable denies any other new symptoms or any other new problems Related by vascular surgery , had a CTA of the neck which shows Complete occlusion of the left internal carotid artery from left carotid bifurcation. Reconstitution at the clinoid segment. Given caliber of the occluded left internal carotid artery, this is felt to be chronic. Atherosclerotic disease at right carotid bifurcation, without flow-limiting stenosis by NASCET criteria. Stenosis is less than 25%. Vessel tortuosity at the right carotid bifurcation , Likely the reason of discrepancy in the carotid vascular studies. Objective - Constitutional Vitals: Temp Pulse Resp BP Pulse Ox 97.9 F 74 17 161/87 97 02/06/18 08:28 02/06/18 08:28 02/06/18 08:28 02/06/18 08:28 02/06/18 08:28 - Neurological Exam Motor examination - left side: 5/5: deltoids, biceps, triceps, wrist flexion, wrist extension, hip flexors, animal trainer, quadriceps, tibialis Anterior, toe extension (EHL), plantarflexion Sensation intact: Present: intact Mental Status Examination: Present: awake, alert, oriented to person, oriented to place, follows commands appropriately Cranial nerve examination: Present: PERRL, EOMI, visual craig intact, no facial asymmetry is present Results - Laboratory Findings CBC and BMP: 02/03/18 04:07 02/03/18 04:07 Abnormal lab findings: Abnormal lab results Chloride 108 mEq/L (98-107) H 02/03/18 04:07 POC Glucose 128 mg/dL (70-99) H 02/03/18 11:57 HDL Cholesterol 26 mg/dL (40-59) L 02/03/18 04:07 Consult Discharge Plan - Plan Referrals: Sean Fox DO [Primary Care Provider] -
[2018-02-06] MEDS ORDERED: amLODIPine 5 MG TABLET PO SCH (12:45)
[2018-02-06 13:04] VITALS: BP 146/92
--- NOTE | 2018-02-06 13:10 | Discharge Summary ---
- NOTES TO OUTPATIENT PROVIDER Notes to Outpatient Provider: Right-sided weakness, likely left cerebral stroke ; on ASA, Plavix and statin now; Date of Encounter: 02/06/18 Time of Encounter: 13:08 - Discharge Diagnosis (1) CVA (cerebral vascular accident) Priority: Primary Status: Suspected Qualifiers: CVA mechanism: unspecified Qualified Code(s): I63.9 - Cerebral infarction, unspecified (2) Hypertension Priority: Secondary Status: Chronic Qualifiers: Hypertension type: essential hypertension Qualified Code(s): I10 - Essential (primary) hypertension (3) Dementia Priority: Secondary Status: Chronic Qualifiers: Dementia type: Alzheimer's disease Alzheimer's disease onset: late-onset Dementia behavioral disturbance: without behavioral disturbance Qualified Code (s): G30.1 - Alzheimer's disease with late onset; F02.80 - Dementia in other diseases classified elsewhere without behavioral disturbance (4) Pacemaker Priority: Secondary Status: Chronic Hospital course: Mr. Bowman is a 77 year old male with the above medical problems, who was brought in by family with decreased responsiveness and altered mental status, along with gradual new onset of right-sided weakness. He did not meet the 24 hour window for possible TPA. Stroke workup was complete. CT head showed no acute stroke. MRI brain could not be done due to presence of pacemaker. Bilateral carotid Doppler showed complete occlusion of left ICA, 60-79% stenosis on right side. Vascular surgery was consulted, CT angiogram of the neck was obtained which showed complete occlusion in left ICA, only 25% stenosis on the right side, no surgical intervention was recommended. Neurology has been on board, patient is suspected to have suffered left cerebral ischemic stroke resulting in right- sided weakness. Agreed with continuation of aspirin, Plavix, statin. Physical and occupational therapy evaluation was completed, recommended inpatient rehabilitation. Plan of care has been explained to patient's during each day of hospitalization. Patient is currently medically stable for discharge to rehabilitation facility. Discharge discussed with: patient, family, rn lactation consultant - Time Spent with Patient Total time spent providing and/or coordinating discharge services: Greater than 30 minutes (45 min) - Discharge Medications Home Medications: Clopidogrel [Plavix] 75 mg PO DAILY 05/27/16 [History] Doxazosin Mesylate [Cardura] 2 mg PO DAILY 05/27/16 [History] Metoprolol [Lopressor] 25 mg PO DAILY 05/27/16 [History] Aspirin [Lo-Dose Aspirin EC] 81 mg PO DAILY 02/02/18 [History] Atorvastatin [Lipitor] 40 mg PO HS 02/02/18 [History] Citalopram Hydrobromide [Citalopram HBr] 40 mg PO DAILY 02/02/18 [History] Donepezil [Aricept] 10 mg PO HS 02/02/18 [History] Memantine [Namenda] 5 mg PO DAILY 02/02/18 [History] Montelukast [Singulair] 10 mg PO DAILY 02/02/18 [History] amLODIPine [Norvasc] 5 mg PO DAILY tablet 02/06/18 [Rx] Allergies/Adverse Reactions: 3 Allergy/AdvReac Type Severity Reaction Status Date / Time No Known Allergies Allergy Verified 02/02/18 20:34 Date of admission: 02/03/18 00:35 Primary care physician: Sean Fox Consults: 02/02/18 23:05 Consult to Neurology [CONS] Routine Consulting Provider: Neurology [facility] Reason for Consult: CVA, Dr Peck was called by Rodriguez Call Completed: Yes Consult to Occupational Therapy [CONS] Routine Comment: Evaluate, develop and implement POC Reason for Consult: CVA Does patient have active BEDREST order?: No Is patient medically & hemodynamically stable?: Yes Consult to Physical Therapy [CONS] Routine Comment: Evaluate, develop and implement POC Reason for Consult: CVA Does patient have active BEDREST order?: No Is patient medically & hemodynamically stable?: Yes Consult to Production Planner [CONS] Routine Reason for SW Consult: CVA needs placement 02/03/18 21:59 Consult to Vascular Surgery [CONS] Routine Consulting Provider: Vascular Surgery Maria Alejandra Reason for Consult: B/L carotid stenosis, right-sided weakness Call Completed: Yes Discharging clinician: Nat Mcfarland Anticipated date of discharge: 02/06/18 - Constitutional Vitals: Temp Pulse Resp BP Pulse Ox 98.4 F 60 18 146/92 95 02/06/18 13:01 02/06/18 13:01 02/06/18 13:01 02/06/18 13:01 02/06/18 13:01 General appearance: Present: A&O X 2, answers questions appropriately - Cardiovascular Cardiovascular exam: Present: RRR, +S1, +S2. Absent: diastolic murmur, gallop, rubs, systolic murmur - Patient Status Disposition: Transfer Inpatient Rehab Fac Condition: Fair Functional capacity at discharge: uses cane/walker Overall status at discharge: patient is progressing back to baseline - Discharge Instructions Instructions: Amlodipine (By mouth), Carotid Artery Disease (DC), Peripheral Vascular Disorders (DC), Ischemic Stroke (DC), Chronic Hypertension (DC) Follow Up With: Sean Fox DO [Primary Care Provider] - (Please call Friday and schedule appointment in 1 to 2 weeks from now. Office is closed at this time. ) Additional Instructions: F/up with PCP in 1-2 weeks - Diet and Activity Activity: as per physical therapy Diet: low fat, low cholesterol, low salt diet
--- NOTE | 2018-02-06 13:14 | Physician Discharge Referral ---
ExtendedCare Referral Info Transfer To: [facility] rehab Provider in Charge: Nat Mcfarland Provider in Charge after Transfer: PCP Institutional Level of Care: Intermediate - Diagnosis (1) CVA (cerebral vascular accident) Priority: Primary Status: Suspected (2) Hypertension Priority: Secondary Status: Chronic (3) Dementia Priority: Secondary Status: Chronic (4) Pacemaker Priority: Secondary Status: Chronic Expected Duration of Placement: 2 weeks Prognosis: Fair Aware of Diagnosis: Patient, Family Aware of Prognosis: Family - Transfer Medications Home Medications: Clopidogrel [Plavix] 75 mg PO DAILY 05/27/16 [History] Doxazosin Mesylate [Cardura] 2 mg PO DAILY 05/27/16 [History] Metoprolol [Lopressor] 25 mg PO DAILY 05/27/16 [History] Aspirin [Lo-Dose Aspirin EC] 81 mg PO DAILY 02/02/18 [History] Atorvastatin [Lipitor] 40 mg PO HS 02/02/18 [History] Citalopram Hydrobromide [Citalopram HBr] 40 mg PO DAILY 02/02/18 [History] Donepezil [Aricept] 10 mg PO HS 02/02/18 [History] Memantine [Namenda] 5 mg PO DAILY 02/02/18 [History] Montelukast [Singulair] 10 mg PO DAILY 02/02/18 [History] amLODIPine [Norvasc] 5 mg PO DAILY tablet 02/06/18 [Rx] Allergies/Adverse Reactions: 3 Allergy/AdvReac Type Severity Reaction Status Date / Time No Known Allergies Allergy Verified 02/02/18 20:34 - Respiratory Orders Smoking Cessation: Smoking cessation has been advised. For more information, call the [place] Tobacco Quit Line at 0-617-EZZH-NOW. - Advance Directives Power of Bumper Operator: Yes Code Status: Full Code - Mobility Orders Ambulate - Rehabiliation Orders Rehab Potential: Fair Rehab Orders: ROM Exercises, Evaluation for Physical Therapy, Evaluation for Occupational Therapy - Diet Orders Cardiac CERTIFICATION: I certify that the transfer of the above named patient to an Extended Care Facility is necessary for the continuing treatment of the diagnosis listed. The above information is true and accurate reflection of patient's current condition. Confidential - Redisclosure prohibited without a patient's written consent.
== END 2018-02-06 14:52 | DRG 66 ==
LOC: 3BNU → SUATTDRO 02-03 00:35
PROVIDERS: ADMIT Internal Medicine Nephrology; ATTEND Internal Medicine